=== PATIENT | female | born 1975 | race African-American/Black ===

== ENCOUNTER 2017-03-28 15:58 | Emergency (ER) | payer SELFPAY ==
[~2017-03-28] VITALS: Ht 149.9 cm; Wt 74.8 kg
[2017-03-28 16:10] VITALS: BP 120/81
--- NOTE | 2017-03-28 16:45 | PHYS DOC ---
Past Medical History Past Medical History: No Pertinent History Past Surgical History: Tubal ligation Alcohol Use: Occasionally Drug Use: None Adult General Chief Complaint Chief Complaint: FOREIGNBODY EAR HPI HPI Patient is a 41 year old female presents to emergency department stating that she thinks she has lost part of the back of her tingling into her left ear. She states that it was there when she has begun to take an apple when she woke up she couldn't find and it believes that there is something in her ear. She states that she has a muffled type hearing in her ear. She denies any nasal congestion area she denies fever, chills or any nausea vomiting. Review of Systems Review of Systems Constitutional: Denies fever or chills [] Eyes: Denies change in visual acuity, redness, or eye pain [] HENT: Denies nasal congestion or sore throat C/o questionable foreign body left ear Respiratory: Denies cough or shortness of breath [] Cardiovascular: No additional information not addressed in HPI [] GI: Denies abdominal pain, nausea, vomiting, bloody stools or diarrhea [] : Denies dysuria or hematuria [] Musculoskeletal: Denies back pain or joint pain [] Integument: Denies rash or skin lesions [] Neurologic: Denies headache, focal weakness or sensory changes [] Allergies Allergies Allergies Coded Allergies Type Severity Reaction Last Updated Verified No Known Drug Allergies 09/10/14 No Physical Exam Physical Exam Constitutional: Well developed, well nourished, no acute distress, non-toxic appearance. [] HENT: Normocephalic, atraumatic, bilateral external ears normal, oropharynx moist, no oral exudates, nose normal. Bilateral tympanic membranes appear to be normal. Throat with postnasal drip noted. Nares appears to have clear drainage noted. Eyes: PERRLA, EOMI, conjunctiva normal, no discharge. [] Neck: Normal range of motion, no tenderness, supple, no stridor. [] Cardiovascular:Heart rate regular rhythm, no murmur [] Lungs & Thorax: Bilateral breath sounds clear to auscultation [] Skin: Warm, dry, no erythema, no rash. [] Back: No tenderness Extremities: No tenderness, no cyanosis, no clubbing, ROM intact, no edema. [] Neurologic: Alert and oriented X 3, normal motor function, normal sensory function, no focal deficits noted. [] Psychologic: Affect normal, judgement normal, mood normal. [] Current Patient Data Vital Signs Vital Signs Date Time Temp Pulse Resp B/P Pulse Ox O2 Delivery O2 Flow Rate FiO2 03/28/17 16:10 Room Air EKG EKG [] Radiology/Procedures Radiology/Procedures [] Course & Med Decision Making Course & Med Decision Making Pertinent Labs and Imaging studies reviewed. (See chart for details) Left ear was irrigated with saline. No foreign object noted from the ear. Tympanic membrane remains clear. Patient will be discharged home with recommendations to follow-up the primary care physician in the next 3-5 days. Since symptoms to return back to emergency department been provided. Dragon Disclaimer Dragon Disclaimer This electronic medical record was generated, in whole or in part, using a voice recognition dictation system. Departure Departure Impression: Primary Impression: Otalgia of left ear Disposition: HOME, SELF-CARE Condition: STABLE Referrals: NO PCP (PCP) Patient Instructions: Otalgia-Brief Additional Instructions: Activity as tolerated Tylenol or Ibuprofen for pain and discomfort Followup with your primary care provider in 3-5 days Return to emergency department as needed for signs and symptoms that become worse. JOSE D ADAMS [employer] Mar 28, 2017 16:45
== END 2017-03-28 16:47 | disposition home or self-care (01) ==
LOC: ER 15:58
DX: H92.02 Otalgia, left ear (principal)
CPT/HCPCS: 99282

== ENCOUNTER 2021-01-02 08:15 | Emergency (ER) | payer OTHER, BC ==
[~2021-01-02] VITALS: Ht 149.9 cm; Wt 77.2 kg
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
[2021-01-02] MEDS: HYDROcodone/APAP 5/325MG 1 TAB TABLET PO ONE (08:39)
[2021-01-02] MEDS: IBUPROFEN 400 MG TABLET. PO ONE (08:39)
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
[2021-01-02 09:39] VITALS: BP 161/82
[2021-01-02] MEDS ORDERED: NAPR-682 PO (10:14)
[2021-01-02] MEDS ORDERED: CYCL10TA2 PO (10:14)
== END 2021-01-02 10:22 | disposition home or self-care (01) ==
LOC: ER 08:15
DX: M54.5 Low back pain (principal); Z98.51 Tubal ligation status; G89.11 Acute pain due to trauma; V49.49XA Driver injured in collision with other motor vehicles in traffic accident, initial encounter; Y92.488 Other paved roadways as the place of occurrence of the external cause; Y93.89 Activity, other specified; Y99.8 Other external cause status
CPT/HCPCS: 72040; 72100; 99284

== ENCOUNTER 2021-12-08 08:24 | Emergency (ER) | payer BC, OTHER ==
[~2021-12-08] VITALS: Ht 149.9 cm; Wt 80.9 kg
[~2021-12-08 08:24] MED LIST: CYCL10TA19 PO; NAPR-682 PO
--- NOTE | 2021-12-08 08:51 | PHYS DOC ---
Past Medical History Past Medical History: No Pertinent History Past Surgical History: Tubal ligation Additional Past Surgical Histo: ovarian cyst removed Smoking Status: Never Smoker Alcohol Use: Occasionally Drug Use: None General Adult EDM: Chief Complaint: FLU SYMPTOM HPI: HPI: Patient is a 46 year old female here with about 3 days of subjective fevers, chills, myalgias, nausea, no vomiting. She denies constipation or diarrhea. She reports right flank pain, and right lower abdominal pain. She denies anorexia. She denies urinary symptoms. She denies chest pain or dyspnea. She does report a nonproductive cough. She reports mild headache. She denies dizz iness, numbness, tingling, weakness or syncope. No specific exacerbating relieving factors regarding her leg pain. No radiation of pain down her leg. No incontinence. She has been fully vaccinated against COVID-19, including booster. She has been vaccinated against influenza. Review of Systems: Review of Systems: Constitutional: Fever and chills. HENT: Denies nasal congestion or sore throat. [] Respiratory: Dry cough. Denies dyspnea. Cardiovascular: Denies chest pain or edema. [] GI: Reports abdominal cramping, RLQ pain, R flank pain and nausea. Denies vomiting. Denies bowel habit changes. : Denies urinary symptoms. Musculoskeletal: Right flank pain and diffuse myalgias. Integument: Denies rash. [] Neurologic: Reports mild headache. Denies focal weakness, numbness, syncope, dizziness. Psychiatric: Denies depression or anxiety. [] Heart Score: C/O Chest Pain: No Risk Factors: Risk Factors: DM, Current or recent (<one month) smoker, HTN, HLP, family history of CAD, obesity. Risk Scores: Score 0 - 3: 2.5% MACE over next 6 weeks - Discharge Home Score 4 - 6: 20.3% MACE over next 6 weeks - Admit for Clinical Observation Score 7 - 10: 72.7% MACE over next 6 weeks - Early Invasive Strategies Allergies: Allergies: Allergies Coded Allergies Type Severity Reaction Last Updated Verified No Known Drug Allergies 09/10/14 No Physical Exam: PE: Constitutional: Well developed, well nourished, no acute distress, non-toxic appearance. [] HENT: Normocephalic, atraumatic, mucous membranes are moist Eyes: Conjunctiva normal, no discharge. [] Neck: Normal range of motion, no tenderness, supple, no stridor, no meningismus Cardiovascular:Heart rate regular rhythm, +2 radial and +2 dorsalis pedis pulses bilaterally Lungs & Thorax: Bilateral breath sounds clear to auscultation [] Abdomen: Abdomen is obese, soft, nondistended, mild right lower quadrant tenderness, no guarding, no rebound tenderness, no palpable masses organomegaly. No CVA tenderness. No flank or abdominal ecchymoses. Skin: Warm, dry, no erythema, no rash. [] Back: No deformity, no midline tenderness or step-offs. Mild right-sided soft tissue paraspinal lumbar tenderness. Extremities: No tenderness, no cyanosis, no clubbing, ROM intact, no edema. No calf tenderness. Neurologic: Alert and oriented X 3, normal motor function, normal sensory function, no focal deficits noted. No foot drop, 5 out of 5 motor strength bilateral lower extremities. Gait is steady. Psychologic: Affect normal, judgement normal, mood normal. [] EKG: EKG: [] Radiology/Procedures: Radiology/Procedures: IMAGING REPORT Signed PATIENT: KASIE MEYER ACCOUNT: [id number] : 1975 LOCATION: ER AGE: 46 SEX: F EXAM STATUS: REG ER ORD. PHYSICIAN: BROOKE WHITMORE DO REASON: RLQ pain PROCEDURE: CT ABD PELV W/ IV CONTRST ONLY CT ABDOMEN+PELVIS W History: Right lower quadrant pain Comparison: None. Technique: CT of the abdomen and pelvis with intravenous contrast Findings: The lung bases are clear. The liver, gallbladder, pancreas, spleen, adrenal glands, and kidneys are unremarkable. The stomach and small bowel are within normal limits. The appendix is visualized and normal. Minimal colonic diverticulosis. No evidence of diverticulitis. No colonic wall thickening. Unremarkable bladder. The uterus is heterogeneous with a large posterior subserosal fibroid measuring 5.4 cm diameter. No adnexal masses. Minimal aort oiliac calcification. 7 mm right central mesenteric lymph node. No enlarged adenopathy. There is a small fat-containing umbilical hernia. Osseous structures are unremarkable. Impression: 1. No acute findings in the abdomen and pelvis. Normal appendix. 2. Fibroid uterus with large 5.4 cm posterior subserosal fibroid. ------ Exposure: One or more of the following individualized dose reduction techniques were utilized for this examination: 1. Automated exposure control 2. Adjustment of the mA and/or kV according to patient size 3. Use of iterative reconstruction technique. Electronically signed by: Nestor Davis MD (12/08/2021 11:37 AM) [facility] DICTATED and SIGNED BY: NESTOR DAVIS MD DATE: 12/08/21 [id number] 0 Course & Med Decision Making: Course & Med Decision Making Pertinent Labs and Imaging studies reviewed. (See chart for details) The patient is given IV Toradol, IV Zofran and IV fluids. She is resting comfo rtably. She has a nonsurgical abdominal exam. CT of the abdomen pelvis is unremarkable for any acute surgical or life-threatening process. She tested positive for influenza A here. I discussed the findings, differential diagnosis and plan of care with her. I discussed home care/supportive care measures. She is provided a work note for the rest of the week. No current indication for further invasive exams, imaging or admission at this time based on current clinical presentation. Return precautions are given. She is comfortable to plan of care, verbalized understanding. Dragon Disclaimer: Toro Disclaimer: This electronic medical record was generated, in whole or in part, using a voice recognition dictation system. Departure Departure Impression: Primary Impression: Influenza A Additional Impressions: Right flank pain Right lower quadrant abdominal pain Nausea Disposition: 01 HOME / SELF CARE / HOMELESS Condition: STABLE Referrals: NO PCP (PCP) Patient Instructions: Flank Pain, Influenza A (H1N1) Additional Instructions: Please take the medications as needed/as directed. Stay hydrated, drink plenty fluids, get plenty of rest. Should stay home from work for the duration of the week. Return to the ER for severe chest pain, shortness of breath, uncontrolled vomiting, dehydration, weakness or any other concerns. Follow-up with your primary care physician. Scripts Ondansetron Hcl (ONDANSETRON HCL) 4 Mg Tablet 1 TAB PO PRN Q6HRS for vomiting, #20 TAB 1 Refill Prov: BROOKE WHITMORE DO 12/08/21 Hydrocodone Bit/Acetaminophen (HYDROCODONE-APAP 5-325 ) 1 Tab Tablet 1 TAB PO PRN Q6HRS PRN for PAIN, #20 TAB 0 Refills Prov: BROOKE WHITMORE DO 12/08/21 BROOKE WHITMORE DO Dec 08, 2021 08:51
[2021-12-08 08:53] VITALS: BP 155/75
[2021-12-08] MEDS ORDERED: KETOROLAC 15 MG/ML VIAL. IVP ONE (09:15)
[2021-12-08] MEDS ORDERED: ONDANSETRON PF 4 MG/2 ML VIAL. IVP ONE (09:15)
[2021-12-08] MEDS ORDERED: IV NORMAL SALINE 1000ML BAG 1,000 ML IV ONE (09:15)
[2021-12-08 09:33] LABS: BILIRUBIN,URINE NEGATIVE (NEG); CLARITY,URINE CLEAR; COLOR,URINE YELLOW; NITRITE,URINE NEGATIVE (NEG); PH,URINE 6.5 (<5.0-8.0); PROTEIN,URINE NEGATIVE (NEG-TRACE); UROBILINOGEN,URINE 0.2 mg/dL (0.2 mg/dL)
[2021-12-08 09:38] LABS: INFLUENZA B PATIENT NEGATIVE (NEGATIVE)
[2021-12-08 09:41] LABS: INFLUENZA A PATIENT POSITIVE (NEGATIVE)
[2021-12-08 09:56] LABS: BACTERIA,URINE 0 /HPF (0-FEW); RBC,URINE 0 /HPF (0-2); WBC,URINE OCC /HPF (0-4)
[2021-12-08 10:10] LABS: BASO # 0.1 x10^3/uL (0.0-0.2); BASO % 1 % (0-3); CALCIUM 8.6 mg/dL (8.5-10.1); CREATININE 0.8 mg/dL (0.6-1.0); EOS # 0.1 x10^3/uL (0.0-0.7); EOS % 1 % (0-3); GFR 92.6; HEMATOCRIT 39.4 % (36.0-47.0); HEMOGLOBIN 13.1 g/dL (12.0-15.5); LYMPH # 2.8 x10^3/uL (1.0-4.8); LYMPH % 38 % (24-48); MEAN CORPUSCULAR HEMOGLOBIN 30 pg (25-35); MEAN CORPUSCULAR HGB CONC 33 g/dL (31-37); MEAN CORPUSCULAR VOLUME 90 fL (79-100); MONO # 0.4 x10^3/uL (0.0-1.1); MONO % 6 % (0-9); NEUT % 55 % (31-73); PLATELET COUNT 255 x10^3/uL (140-400); POTASSIUM 3.8 mmol/L (3.5-5.1); RED CELL DISTRIBUTION WIDTH 14.3 % (11.5-14.5); WHITE BLOOD COUNT 7.4 x10^3/uL (4.0-11.0)
[2021-12-08 10:16] LABS: ALBUMIN 3.7 g/dL (3.4-5.0); ALBUMIN/GLOBULIN RATIO 0.9 (1.0-1.7); TOTAL BILIRUBIN 0.1 mg/dL (0.2-1.0); TOTAL PROTEIN 7.8 g/dL (6.4-8.2)
[2021-12-08] MEDS ORDERED: IOHEXOL 300 MG/ML 100ML VIAL. IV ONE (10:30)
[2021-12-08] MEDS ORDERED: CONTRAST GIVEN. MC PRN (10:45)
--- NOTE | 2021-12-08 11:39 | RAD ---
CT ABDOMEN+PELVIS W History: Right lower quadrant pain Comparison: None. Technique: CT of the abdomen and pelvis with intravenous contrast Findings: The lung bases are clear. The liver, gallbladder, pancreas, spleen, adrenal glands, and kidneys are u nremarkable. The stomach and small bowel are within normal limits. The appendix is visualized and normal. Minimal colonic diverticulosis. No evidence of diverticulitis. No colonic wall thickening. Unremarkable bladder. The uterus is heterogeneous with a large posterior subserosal fibroid measuring 5.4 cm diameter. No adnexal masses. Minimal aortoiliac calcification. 7 mm right central mesenteric lymph node. No enlarged adenopathy. There is a small fat-containing umbilical hernia. Osseous structures are unremarkable. Impression: 1. No acute findings in the abdomen and pelvis. Normal appendix. 2. Fibroid uterus with large 5.4 cm posterior subserosal fibroid. ------ Exposure: One or more of the following individualized dose reduction techniques were utilized for thi s examination: 1. Automated exposure control 2. Adjustment of the mA and/or kV according to patient size 3. Use of iterative reconstruction technique. Electronically signed by: Nestor Davis MD (12/08/2021 11:37 AM) [facility]
[2021-12-08] MEDS ORDERED: ONDA-84 PO (11:52)
[2021-12-08] MEDS ORDERED: HYDR-2761 PO (11:52)
== END 2021-12-08 11:59 | disposition home or self-care (01) ==
LOC: ER 08:24
DX: J10.1 Influenza due to other identified influenza virus with other respiratory manifestations (principal); R10.31 Right lower quadrant pain; R11.0 Nausea; Z20.822 Contact with and (suspected) exposure to COVID-19; Z98.51 Tubal ligation status
CPT/HCPCS: 36415; 74177; 80053; 81001; 81025; 83690; 85025; 96361; 96374; 96375; 99285; J1885; J2405; J7030; Q9967; U0003; U0005; 96366

== ENCOUNTER 2022-01-05 08:31 | Emergency (ER) | payer BC ==
[~2022-01-05] VITALS: Ht 149.9 cm; Wt 82.7 kg
[~2022-01-05 08:31] MED LIST changes: +HYDR-2761 PO; +ONDA-84 PO
[2022-01-05 08:36] VITALS: BP 150/99
[2022-01-05] MEDS ORDERED: ACETAMINOPHEN 500 MG TABLET PO ONE (09:00)
[2022-01-05] MEDS ORDERED: NAPROXEN 500 MG TABLET PO ONE (09:00)
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
[2022-01-05] MEDS ORDERED: NAPR-514 PO (09:24)
--- NOTE | 2022-01-05 09:24 | PHYS DOC ---
Past Medical History Past Medical History: No Pertinent History Past Surgical History: Oophorectomy, Tubal ligation Additional Past Surgical Histo: ovarian cyst removed Smoking Status: Never Smoker Alcohol Use: Occasionally Drug Use: None Adult General Chief Complaint Chief Complaint: LOWER EXT PAIN HPI HPI The patient is a 46-year-old female with a history of hypertension who presents for evaluation of left ankle discomfort with onset after she twisted her ankle during a mechanical ground-level fall yesterday. Patient states her driveway is uneven and she lost her footing and fell down. No other injury during the episode. No therapy for symptoms prior to arrival. Review of Systems Review of Systems A 12 point review of systems was completed and was negative except where noted in HPI above. Current Medications Current Medications Current Medications Medications (Trade) Dose Ordered Sig/Kimberli Start Time Stop Time Status Last Admin Dose Admin Acetaminophen (Tylenol) 1,000 mg 1X ONCE 01/05/22 09:00 01/05/22 09:01 DC Naproxen (Naprosyn) 500 mg 1X ONCE 01/05/22 09:00 01/05/22 09:01 DC Allergies Allergies Allergies Coded Allergies Type Severity Reaction Last Updated Verified No Known Drug Allergies 12/08/21 No Physical Exam Physical Exam Middle-aged female appearing nontoxic and in no acute distress. Head is normocephalic and atraumatic. Neck is supple and nontender. Oropharynx is moist. Lungs are clear to auscultation at all stations. There is a normal S1 and S2 without rubs or gallops and capillary refill is appropriate, less than 2 seconds globally. Abdomen is soft, nontender and nondistended. Skin is warm and dry without cyanosis, clubbing or edema. Psychiatrically, the patient demonstrates appropriate mood and affect and is alert. Evaluation of the extremities reveals BUEs and BLEs neurovascularly intact distally with strength 5 out of 5, sensation intact light touch in all nerve distributions, radial, DP and PT pulses 2+ equal bilaterally, capillary refill less than 2 seconds, hands and feet warm and well-perfused. No dependent peripheral edema distally. No calf pain or swelling bilaterally. Homans test is negative bilaterally. There is mild tenderness over the left lateral malleolus and less so over the base of the left fifth metatarsal. There is mild discomfort with ranging at the left ankle. No discomfort with ranging at any other joint of the left lower extremity. Current Patient Data Vital Signs Vital Signs Date Time Temp Pulse Resp B/P (MAP) Pulse Ox O2 Delivery O2 Flow Rate FiO2 01/05/22 08:36 97.6 90 22 150/99 (116) 97 Room Air 97.6 EKG EKG [] Radiology/Procedures Radiology/Procedures XR EXAM OF ANKLE_LEFT 2V, XR FOOT_LEFT 2 VIEWS History: Ankle injury. Comparison: None. Technique: 2 views the left ankle and 2 views the left foot. Findings: Osseous mineralization is normal. No acute fracture or dislocaton. The ankle mo rtise and talar dome are intact. Mild degenerative changes of the first metatarsophalangeal joint. Moderate plantar calcaneal enthesophyte. No focal soft tissue swelling. Impression: 1. No acute findings in the left foot and ankle. Electronically signed by: Nestor Davis MD (01/05/2022 9:09 AM) [id number] DICTATED and SIGNED BY: NESTOR DAVIS MD DATE: 01/05/22 [id number] XR EXAM OF ANKLE_LEFT 2V, XR FOOT_LEFT 2 VIEWS History: Ankle injury. Comparison: None. Technique: 2 views the left ankle and 2 views the left foot. Findings: Osseous mineralization is normal. No acute fracture or dislocaton. The ankle mortise and talar dome are intact. Mild degenerative changes of the first metatarsophalangeal joint. Moderate plantar calcaneal enthesophyte. No focal soft tissue swelling. Impression: 1. No acute findings in the left foot and ankle. Electronically signed by: Nestor Davis MD (01/05/2022 9:09 AM) [id number] DICTATED and SIGNED BY: NESTOR DAVIS MD DATE: 01/05/22 [id number] Course & Med Decision Making Course & Med Decision Making Plain films are unrevealing of any evidence of acute process. Will discharge home with anti-inflammatory prescription and instructions to rest, ice and elevate. Patient already has crutches. Will Andrea wrap and provide an air splint. Patient is to follow-up closely with primary care and understands that if she feels worse instead of better or develops other new symptoms of concern that she should return to the emergency department right away for reevaluation. All questions are answered. Dragon Disclaimer Dragon Disclaimer This electronic medical record was generated, in whole or in part, using a voice recognition dictation system. Departure Departure Impression: Primary Impression: Sprain of other ligament of left ankle, initial encounter Disposition: HOME / SELF CARE / HOMELESS Condition: IMPROVED Patient Instructions: Ankle Sprain Additional Instructions: Follow-up very closely with your primary care doctor in the office in the next 2 to 4 days for reevaluation of your symptoms and to discussion of next best steps in care. Take a 500 mg naproxen pill every 12 hours as needed for discomfort, with food to prevent stomach upset. Wear the air splint to stabilize and support your ankle and you may use your crutches to stay off the ankle until it feels better. As your ankle feels better you may feel free to bear weight on it as tolerated. Rest, ice and elevate. Return to the emergency department right away for worsening symptoms of any kind or with any other new symptoms of concern. Scripts Naproxen (NAPROXEN) 500 Mg Tablet 1 TAB PO BID for pain, #30 TAB 0 Refills Prov: RACHAEL HERNANDEZ MD 01/05/22 RACHAEL HERNANDEZ MD Jan 05, 2022 09:24
== END 2022-01-05 09:31 | disposition home or self-care (01) ==
LOC: ER 08:31
DX: S93.402A Sprain of unspecified ligament of left ankle, initial encounter (principal); X50.9XXA Other and unspecified overexertion or strenuous movements or postures, initial encounter; Y93.89 Activity, other specified; Y92.89 Other specified places as the place of occurrence of the external cause; Y99.8 Other external cause status
CPT/HCPCS: 29515; 73600; 73620; 99284